=== PATIENT | male | born 1970 | race Caucasian/White ===

== ENCOUNTER 2023-12-20 10:12 | Day surgery (SDC) | payer SELFPAY ==
[2023-12-16 10:16] VITALS: BMI 30.1
[2023-12-20] MEDS ORDERED: MIDAZOLAM HCL 2 MG/2 ML SINGLE DOSE VIAL ONE (10:16)
[2023-12-20] MEDS ORDERED: PROPOFOL 80 ML ONE (10:16)
[2023-12-20] MEDS ORDERED: LIDOCAINE HCL/PF 2% SDV 5ML VIAL ONE (10:18)
[2023-12-20] MEDS ORDERED: ceFAZolin SODIUM 1 GM VIAL ONE (11:45)
[2023-12-20] MEDS ORDERED: TETRACAINE 0.5% OPHTH SOLN 2 ML BOTTLE ONE (11:45)
[2023-12-20] MEDS ORDERED: LIDOCAINE 1%/EPI 1:100000 (20 ML MULTI DOSE VIAL) ONE ×2 (11:45→12:32)
[2023-12-20] MEDS ORDERED: POVIDONE-IODINE 5% OPHTHALMIC PREP 30 ML SOLUTION ONE (11:45)
[2023-12-20] MEDS ORDERED: ERYTHROMYCIN 0.5% OPHTHALMIC OINTMENT 3.5 GM TUBE ONE (11:45)
[2023-12-20] MEDS ORDERED: ONDANSETRON 4 MG/2 ML VIAL ONE (12:33)
[2023-12-20] MEDS ORDERED: DEXAMETHASONE SOD PHOSPHATE 4 MG/1 ML VIAL ONE (12:33)
[2023-12-20] MEDS ORDERED: PROPOFOL 60 ML ONE ×2 (13:02→13:38)
[2023-12-20] MEDS ORDERED: ONDANSETRON 4 MG/2 ML VIAL IVPUSH PRN (14:30)
[2023-12-20] MEDS ORDERED: oxyCODONE HCL 5 MG TABLET PO PRN (14:30)
[2023-12-20] MEDS ORDERED: LACTATED RINGERS SOLUTION 1,000 ML IV SCH (14:30)
[2023-12-20] MEDS ORDERED: ACETAMINOPHEN INJECTION 100 ML IVPB ONE (14:38)
[2023-12-20] MEDS ORDERED: ACETAMINOPHEN 1000 MG/100 ML BAG IVPB ONE (14:41)
[2023-12-20 15:44] VITALS: BP 116/71; PULSE 59; RESP 16; TEMP 97.4
== END 2023-12-20 16:00 | disposition home or self-care (01) ==
LOC: FASU 10:12
PROVIDERS: ATTEND Ophthalmology
CPT/HCPCS: 94760; J0131